=== PATIENT | male | born 1950 ===

== ENCOUNTER 2020-12-18 21:34 | Outpatient (CLI) | payer MEDICARE, BC, OTHER ==
[~2020-12-18 21:34] MED LIST: ALBUTEROL 90 MCG/ACT 8GM HFA INHALER INH PRN; ALBUTEROL SULFATE 2.5 MG/0.5 ML INH NEB SOLN INH PRN; EPINEPHrine INJ 1 MG/ML 1ML AMP IM PRN; LOSA50TA28 PO; NS 1,000 ML IV SCH; SILD50TA2 PO; diphenhydrAMINE 50MG/ML VIAL (J1200) IV PRN; methylPREDNISolone 125MG 2ML VIAL IV PRN
[2020-12-18 21:40] VITALS: BP 139/85
[2020-12-18] MEDS ORDERED: CASIRIVIMAB/IMDEVIMAB 1,200 MG in NS 250 ML IV ONE (22:15)
[2020-12-18 22:50] VITALS: BP 107/64
[2020-12-18] MEDS ORDERED: ACETAMINOPHEN 500 MG TAB PO ONE (23:00)
[2020-12-18 23:15] VITALS: BP 113/67
[2020-12-19 00:02] VITALS: BP 120/74
[2020-12-19 01:00] VITALS: BP 129/81
== END 2020-12-19 01:05 | disposition home or self-care (01) ==
LOC: MERGE 21:34 → M OPCLIICU 21:34 → M 4MAIN 21:37 → M OPCLIICU 12-19 01:05
PROVIDERS: ATTEND Internal Medicine
DX: U07.1 COVID-19 (principal); Z88.8 Allergy status to other drugs, medicaments and biological substances